=== PATIENT | male | born 1990 | race Two or more races ===

== ENCOUNTER 2022-10-29 10:54 | Emergency (ER) | payer OTHER ==
[~2022-10-29] VITALS: Ht 182.9 cm; Wt 79.5 kg
[2022-10-29 11:07] VITALS: BP 124/83
[2022-10-29] MEDS ORDERED: TRIA15CR61 TOP (11:59)
== END 2022-10-29 12:10 | disposition home or self-care (01) ==
LOC: ER 10:55
DX: L23.7 Allergic contact dermatitis due to plants, except food (principal)
CPT/HCPCS: 99283